=== PATIENT | male | born 1990 ===

== ENCOUNTER 2023-11-03 14:43 | Emergency (ER) | payer OTHER, SELFPAY ==
--- NOTE | 2023-11-03 14:52 | ED.GENADULT ---
HPI - General Adult General Chief complaint: Dental/Oral Stated complaint: Swelling in mouth/throat Time Seen by Provider: 11/03/23 14:51 History of Present Illness HPI narrative: The patient is a 33-year-old who is generally in good health and is on no prescription medications. He reports a history of a significant episode of tonsillitis several months ago. The patient comes to the emergency room because he has had a worsening sore throat over the last 3 days. Today he came to the emergency room because he felt he was having difficulty swallowing. He felt he could not tolerate his own secretions. His voice seemed somewhat abnormal. He is unaware if he has had a fever or not. He says the last time he had his tonsillitis episode he did not need any kind of drainage or surgical intervention. No vomiting. No chest pain Related Data Previous Rx's Medication Instructions Recorded amoxicillin 875 mg-potassium 1 tab PO BID #20 tabs 11/03/23 clavulanate 125 mg tablet ibuprofen 600 mg tablet 600 mg PO Q6H PRN pain #14 tabs 11/03/23 Allergies Allergy/AdvReac Type Severity Reaction Status Date / Time No Known Allergies Allergy Verified 11/03/23 15:04 Review of Systems Review of Systems: Yes all other systems are reviewed and are negative [facility] Social History Social History Advance Directives: No Advance Directives Information Provided: Yes Physical Exam ED Vital Signs: Vital Signs - 24 hr 11/03/23 15:05 11/03/23 15:28 11/03/23 17:13 Temperature 99.3 F 99.5 F 98.4 F Pulse Rate 88 86 84 Respiratory Rate 17 20 16 Blood Pressure 109/78 123/63 128/44 L Pulse Oximetry 98 98 98 Oxygen Delivery Method Room Air Room Air Room Air 11/03/23 17:58 Temperature 98.4 F Pulse Rate 84 Respiratory Rate 16 Blood Pressure 128/64 Pulse Oximetry 98 Oxygen Delivery Method Room Air BMI result Body Mass Index 26.8 Const Other: The patient has the appearance of an ordinarily fit and healthy 33-year-old who looks somewhat acutely ill. He was spitting his secretions and had a bit of a hot potato voice HENMT Other: No apparent trismus. There was a great deal of erythema and fullness to the right soft palate. He was tender with palpation of the swelling. Eyes Other: Pupils are round equal, conjunctivae clear, extraocular movements intact Neck Other: No significant cervical adenopathy. Specifically he did not have a significantly swollen jugulodigastric node. Resp Effort & Inspection: normal respiratory effort Auscultation: clear to auscultation bilaterally Cardio Rate: regular rate Rhythm: regular rhythm Heart sounds: S1 normal heart sound present and S2 normal heart sound present Skin Other: Skin is dry and unremarkable. Neuro Other: The patient is awake, alert, pleasant, cooperative. He is grossly neurologically intact. Extrem Other: No peripheral edema. Course Course Course Narrative: This is an RME: Additional HPI, ROS, PE not included below will be deferred to primary provider. 33 yo m presents w/ sore throat sent in by [facility] walk in to r/o [employer]IST[employer]. Reports subjective fevers and chills at home as well as difficulty controlling secretions. Plan labs, viral test Medications Administered Discontinued Medications Generic Name Dose Route Start Last Admin Trade Name Freq PRN Reason Stop Dose Admin Dexamethasone Sodium Phosphate 10 mg 11/03/23 15:44 11/03/23 15:52 Dexamethasone Sod Phosphate 10 Mg/Ml Vial IVPUSH 11/03/23 15:45 10 mg ONCE ONE Administration Sodium Chloride 1,000 mls @ 999 mls/hr 11/03/23 15:30 11/03/23 16:55 Ns IV 11/03/23 16:30 Infused .Q1H1M JERED Infusion Ampicillin Sodium/Sulbactam 100 mls @ 200 mls/hr 11/03/23 15:43 11/03/23 16:55 Sodium 3 gm/ Sodium Chloride IV 11/03/23 16:12 Infused ONCE ONE Infusion Ketorolac Tromethamine 10 mg 11/03/23 15:16 11/03/23 15:26 Ketorolac Tromethamine 15 Mg/Ml Vial IVPUSH 11/03/23 15:17 10 mg ONCE ONE Administration Lidocaine/Epinephrine 10 ml 11/03/23 15:20 11/03/23 15:27 Lidocaine Hcl 1%/Epi 1:100,000 10 Ml Vial INFILTRATI 11/03/23 15:21 10 ml ONCE ONE Administration Procedures Abscess I/D Site: oral Side (if applicable): right Local Anesthetic: lidocaine 1% and with epi Amount of anesthesia used (mL): 2 Technique: needle aspiration and incised with blade Sent for culture/gram staining?: No Irrigation: No Packing used?: none Medical Decision Making Medical Decision Making MDM Narrative: The patient is a generally healthy 33-year-old who presents with 3 days of worsening sore throat guilty swallowing his secretions. On exam he had a very pronounced fullness of his right soft palate suggestive of a peritonsillar abscess. He was seen promptly and given an IV and given IV ketorolac. I then spoke to him with a Frisian specialized language instructor and he consented to an incision and drainage procedure at the bedside by me. I used a 27 gauge needle to inject lidocaine with epinephrine along most of the swelling of the right soft palate. This caused obvious blanching in the anesthetized areas. I then used an 18 gauge needle to aspirate the center of the swelling. I easily aspirated fairly thick pus. I then made an incision with a 11. Blade and drained additional pus. I probed the abscess cavity with forceps to break up any loculations. The patient received 3 g of IV Unasyn as well as 10 mg of IV dexamethasone. He was given IV fluids. He was observed. He felt much better. He felt he could swallow much more easily. He will be discharged on a course of Augmentin. He should contact the ENT office in the morning to arrange follow up next week. He should return if worse. Lab Data 11/03/23 15:22 11/03/23 15:22 Labs: Lab Results 11/03/23 11/03/23 Range/Units 15:22 15:26 WBC 16.7 H (4.8-10.8) X10*3/uL RBC 5.21 (4.60-5.80) X10*6/uL Hgb 15.5 (14.0-18.0) g/dl Hct 45.9 (42.0-52.0) % MCV 88.1 (80.0-98.0) fL MCH 29.8 (27.0-33.0) pg MCHC 33.8 (31.0-36.0) g/dl RDW 14.1 (11.0-16.0) % Plt Count 216 (160-400) X10*3/uL MPV 10.2 (9.4-12.4) fL Immature Gran % (Auto) 0.4 (0.0-0.4) % Neut % (Auto) 74.9 H (45-73) % Lymph % (Auto) 11.8 L (20-40) % Stewart % (Auto) 8.5 (2-11) % Eos % (Auto) 4.2 H (0-4) % Baso % (Auto) 0.2 (0-2) % Lymph # (Auto) 2.0 (1.2-4.9) X10*3/uL Stewart # (Auto) 1.4 H (0.1-1.2) X10*3/uL Eos # (Auto) 0.7 H (0.0-0.4) X10*3/uL Baso # (Auto) 0.0 (0.0-0.2) X10*3/uL Abs Immat Gran (auto) 0.06 H (0.00-0.03) X10*3/uL Absolute Neuts (auto) 12.5 H (2.0-8.3) x10*3/uL Absolute Nucleated RBC 0.000 (0.0-0.012) X10*3/uL Nucleated RBC % (auto) 0.0 (0.0-0.2) /100WBC Sodium 140 (135-145) mmol/L Potassium 4.1 (3.3-5.1) mmol/L Chloride 103 (96-108) mmol/L Carbon Dioxide 24 (22-29) mmol/L Anion Gap 17 (12-20) BUN 16 (9-16) mg/dL Creatinine 0.85 (0.5-1.4) mg/dL Estim Creat Clear Calc 131.6 Estimated GFR > 60 Random Glucose 86 (60-115) mg/dL Calcium 9.7 (8.4-10.2) mg/dL Total Bilirubin 0.9 (0.0-1.0) mg/dL AST 21 (5-37) U/L ALT 17 (0-40) U/L Alkaline Phosphatase 78 (39-117) U/L C-Reactive Protein 5.08 H (< or = 0.50) mg/dL Total Protein 8.1 H (6.5-8.0) g/dL Albumin 4.8 (3.5-5.0) g/dL Influenza Type A (PCR) NEGATIVE (Negative) Influenza Type B (PCR) NEGATIVE (Negative) RSV RNA Qual (PCR) NEGATIVE (Negative) SARS-CoV-2 RNA (RT-PCR) NEGATIVE (Negative) S. pyogenes GrpA AUNG Negative (Negative) Discharge Plan Discharge Clinical Impression: Peritonsillar abscess Patient Disposition: Home, Self-Care Additional Instructions: You had pus drained from the swelling in the back of the right side of your mouth. This condition is called a ?peritonsillar abscess. I have sent a prescription for antibiotics to your pharmacy for a course of antibiotics. Please picker operator this prescription this evening and take your next dose before going to bed tonight. After that please take this medication you times it ache, approximately every 12 hours. You may use ibuprofen as needed for pain. Drink lot of fluids. Rest and take it easy. Tomorrow morning please call the ENT office, Dr. Sexton, follow up appointment next week. I think you should stay home from work the next 2 days. Return to the emergency room if you feel significantly worse. Prescriptions: New amoxicillin-pot clavulanate 875-125 mg tablet 1 tab PO BID Qty: 20 0RF ibuprofen 600 mg tablet 600 mg PO Q6H PRN (Reason: pain) Qty: 14 0RF Referrals: Braxton Sexton [Physician] - (Right-sided peritonsillar abscess) Stand Alone Forms: Work/School Release Interventions: ED Discharge Assessment Last Done: 11/03/23 17:58 Discharge Date/Time: 11/03/23 17:59
[2023-11-03 15:05] VITALS: BP 109/78; PULSE 88; RESP 17; TEMP 37.4; O2SAT 98; BMI 26.8
[2023-11-03] MEDS: Ketorolac Tromethamine 15 MG/ML VIAL 10 MG IVPUSH (15:26)
[2023-11-03] MEDS: Lidocaine HCl 1%/Epi 1:100,000 10 ML VIAL INFILTRATI (15:27)
[2023-11-03 15:28] VITALS: BP 123/63; PULSE 86; RESP 20; TEMP 37.5; O2SAT 98
[2023-11-03 15:29] LABS: Basophils Percent Auto 0.2 % (0-2); Eosinophils Absolute Auto 0.7 X10*3/uL (0.0-0.4); Eosinophils Percent Auto 4.2 % (0-4); Hematocrit 45.9 % (42.0-52.0); Hemoglobin 15.5 g/dl (14.0-18.0); Imm Gran Abs Auto 0.06 X10*3/uL (0.00-0.03); Imm Gran Pct Auto 0.4 % (0.0-0.4); Lymphocytes Percent Auto 11.8 % (20-40); MANUAL DIFF FLAG NO; Mean Corpuscular HGB Conc 33.8 g/dl (31.0-36.0); Mean Corpuscular Hemoglobin 29.8 pg (27.0-33.0); Mean Corpuscular Volume 88.1 fL (80.0-98.0); Mean Platelet Volume 10.2 fL (9.4-12.4); Monocytes Absolute Auto 1.4 X10*3/uL (0.1-1.2); Monocytes Percent Auto 8.5 % (2-11); Neutrophils Absolute Auto 12.5 x10*3/uL (2.0-8.3); Neutrophils Percent Auto 74.9 % (45-73); Platelet Count 216 X10*3/uL (160-400); Red Blood Count 5.21 X10*6/uL (4.60-5.80); Red Cell Distribution Width 14.1 % (11.0-16.0); White Blood Count 16.7 X10*3/uL (4.8-10.8)
[2023-11-03] MEDS: 0.9 % Sodium Chloride 1,000 ML 999 ML IV (15:37)
[2023-11-03] MEDS: Ampicillin Sodium/Sulbactam Na 3 GM in 0.9 % Sodium Chloride 100 ML IV (15:49)
[2023-11-03 15:50] LABS: IDNOW Serial# 08D9AD1C; Strep A Nucleic Acid Negative (Negative)
[2023-11-03] MEDS: dexAMETHasone sod phosphate 10 MG/ML VIAL IVPUSH (15:52)
[2023-11-03 16:03] LABS: Alanine Aminotransferase 17 U/L (0-40); Albumin Level 4.8 g/dL (3.5-5.0); Alkaline Phosphatase 78 U/L (39-117); Anion Gap 17 (12-20); Aspartate Amino Transferase 21 U/L (5-37); Bilirubin Total 0.9 mg/dL (0.0-1.0); Blood Urea Nitrogen 16 mg/dL (9-16); C Reactive Protein 5.08 mg/dL (< or = 0.50); Calcium 9.7 mg/dL (8.4-10.2); Carbon Dioxide 24 mmol/L (22-29); Chloride 103 mmol/L (96-108); Creatinine Clr Calc Pharmacy 131.6; Estimated Glomerular Filt Rate > 60; Glucose Random 86 mg/dL (60-115); Potassium 4.1 mmol/L (3.3-5.1); Sodium 140 mmol/L (135-145); Total Protein 8.1 g/dL (6.5-8.0)
[2023-11-03 16:16] LABS: Influenza A PCR NEGATIVE (Negative); Influenza B PCR NEGATIVE (Negative); Resp Syncy Virus RNA Qual PCR NEGATIVE (Negative); SARS COV2 PCR INHOUSE NEGATIVE (Negative)
[2023-11-03 17:13] VITALS: BP 128/44; PULSE 84; RESP 16; TEMP 36.9; O2SAT 98
[2023-11-03 17:58] VITALS: BP 128/64; PULSE 84; RESP 16; TEMP 36.9; O2SAT 98
== END 2023-11-03 17:59 | disposition home or self-care (01) ==
PROVIDERS: Physician Assistant; Emergency Provider Emergency Medicine
DX: J36 Peritonsillar abscess (principal); R13.10 Dysphagia, unspecified; R22.1 Localized swelling, mass and lump, neck; R51.9 Headache, unspecified; Z11.52 Encounter for screening for COVID-19; Z20.822 Contact with and (suspected) exposure to COVID-19; Z79.899 Other long term (current) drug therapy
CPT/HCPCS: 0241U; 42700; 80053; 85025; 86140; 87651; 96361; 96374; 96375; 99284; J0295; J1100; J1885